=== PATIENT | female | born 1970 | race Caucasian/White ===

== ENCOUNTER 2023-02-28 15:44 | Emergency (ER) | payer OTHER ==
[2023-02-28 16:04] VITALS: BMI 28.8
[2023-02-28] MEDS ORDERED: ACETAMINOPHEN 500 MG TABLET (FP) PO ONE (17:22)
[2023-02-28] MEDS ORDERED: ONDANSETRON *ODT* 4 MG TABLET SL ONE (17:22)
[2023-02-28] MEDS ORDERED: ACETAMINOPHEN 325 MG TABLET (FP) ONE (18:06)
[2023-02-28] MEDS ORDERED: ONDANSETRON *ODT* 4 MG TABLET ONE (18:06)
[2023-02-28 19:23] VITALS: BP 105/71; PULSE 61; RESP 16; TEMP 97.7
== END 2023-02-28 19:24 | disposition home or self-care (01) ==
LOC: JER 15:44
DX: R11.2 Nausea with vomiting, unspecified (principal); R51.9 Headache, unspecified; H93.13 Tinnitus, bilateral; B34.9 Viral infection, unspecified; Z20.822 Contact with and (suspected) exposure to COVID-19
CPT/HCPCS: 0241U-QW; 99283-25; Q0162

== ENCOUNTER 2024-02-21 14:57 | Emergency (ER) | payer OTHER ==
[2024-02-21 15:13] VITALS: BP 121/72; PULSE 70; RESP 20; BMI 26.6
[2024-02-21 17:14] VITALS: TEMP 98.2
== END 2024-02-21 17:50 | disposition home or self-care (01) ==
LOC: JER 14:57
DX: I83.812 Varicose veins of left lower extremity with pain (principal)
CPT/HCPCS: 99282-25